=== PATIENT | female | born 1995 | race Caucasian/White ===

== ENCOUNTER 2018-09-17 12:40 | Emergency (ER) | payer MEDICAID ==
[~2018-09-17] VITALS: Ht 162.6 cm; Wt 104.3 kg
[~2018-09-17 12:40] MED LIST: AC500T; AMOX500C2 PO; BIRTH CONTORL PO; BIRTH CONTROL PILL; CEPH-507 PO; CLIN300C3 PO; FLT05NA16 NSEACH; ONDA8TAB2 PO; SULF-222 PO; TRAM-21 PO; TRAM50TA2 PO
[2018-09-17 12:54] VITALS: BP 130/82
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
== END 2018-09-17 14:30 | disposition left against medical advice (07) ==
LOC: EDUNIT# 12:40 → ER 12:42
DX: R51 Headache (principal); J45.909 Unspecified asthma, uncomplicated; Z90.89 Acquired absence of other organs; Y04.8XXA Assault by other bodily force, initial encounter
CPT/HCPCS: 70450; 84703; 99282

== ENCOUNTER 2018-10-27 17:08 | Emergency (ER) | payer MEDICAID | END 2018-10-27 17:32 | disposition home or self-care (01) | LOC: ER 17:08 ==

== ENCOUNTER 2018-12-01 10:31 | Emergency (ER) | payer MEDICAID ==
[~2018-12-01] VITALS: Ht 162.5 cm; Wt 104.5 kg
[~2018-12-01 10:31] MED LIST changes: +CYCL10TA9; +DICL75TA2; +NITR100C10
--- NOTE | 2018-12-01 10:51 | ED Upper Extremity ---
General Chief Complaint: Upper Extremity Stated Complaint: L HAND PAIN Nursing Triage Note: Pt c/o L wrist pain. Pt reports falling on the concrete last night. Nursing Sepsis Screen: No Definite Risk Source: patient Exam Limitations: no limitations History of Present Illness Date Seen by Provider: Dec 01, 2018 Time Seen by Provider: 10:49 Initial Comments To ER with pain at the base of her left thumb and left wrist after falling on concrete last night Onset: yesterday Severity: moderate Pain/Injury Location: left wrist, left thumb Method of Injury: unknown Modifying Factors: Improves With Movement Allergies and Home Medications Allergies Coded Allergies: No Known Allergies (Unverified Allergy, Mild, 08/27/08) No Known Drug Allergies (Unverified Allergy, Mild, 07/05/08) Home Medications Amoxicillin 500 Mg Capsule, 500 MG PO TID Prescribed by: MICHELLE LÓPEZ on 10/27/18 1725 Cephalexin 500 Mg Capsule, 500 MG PO QID Prescribed by: LEON KENT on 04/16/15 0150 Patient Home Medication List Home Medication List Reviewed: Yes Review of Systems Constitutional: see HPI EENTM: see HPI Respiratory: no symptoms reported Cardiovascular: no symptoms reported Gastrointestinal: see HPI Genitourinary: no symptoms reported Musculoskeletal: see HPI Skin: no symptoms reported Psychiatric/Neurological: No Symptoms Reported Past Umeneqs-Atpkug-Fzngyw Hx Patient Social History Alcohol Use: Occasionally Uses Recreational Drug Use: No 2nd Hand Smoke Exposure: No Recent Foreign Travel: No Contact w/Someone Who Travel: No Recent Infectious Disease Expo: No Physical Abuse: No Sexual Abuse: No Immunizations Up To Date Tetanus Booster (TDap): Unknown PED Vaccines UTD: Yes Seasonal Allergies Seasonal Allergies: No Past Medical History Surgeries: Yes Adenoidectomy, Tonsillectomy Respiratory: No Asthma Cardiac: No Neurological: No Reproductive Disorders: No Gastrointestinal: No Musculoskeletal: No Endocrine: No Cancer: No Psychosocial: Yes Depression Integumentary: No Blood Disorders: No Family Medical History No Pertinent Family Hx Physical Exam Vital Signs Capillary Refill : Less Than 3 Seconds Height, Weight, BMI Height: 5'4.00" Weight: 230lbs. oz. 104.942924dg; 39.00 BMI Method:Stated General Appearance: WD/WN, no apparent distress HEENT: PERRL/EOMI, normal ENT inspection Respiratory: no respiratory distress, no accessory muscle use Shoulder: normal inspection, non-tender Elbow/Forearm: normal inspection, non-tender Wrist: Yes normal inspection, Yes non-tender Hand: Left, limited ROM, soft tissue tenderness Neurologic/Psychiatric: alert, normal mood/affect, oriented x 3 Skin: normal color, warm/dry Progress/Results/Core Measures Results/Orders My Orders Orders - MICHELLE LÓPEZ APRN Wrist, Left, 3 Views Or More (12/01/18 10:48) Blood Pressure Mean: 87 Departure Impression Primary Impression: Thumb sprain Qualified Codes: S63.602A - Unspecified sprain of left thumb, initial encounter Disposition: HOME, SELF-CARE Condition: Stable Departure-Patient Inst. Decision time for Depature: 10:50 Referrals: [facility] (PCP/Family) Primary Care Physician Patient Instructions: Sprained Thumb Add. Discharge Instructions: Splint as needed really didn't splint can be removed when you feel better 2. Tylenol and Motrin for pain All discharge instructions reviewed with patient and/or family. Voiced understanding. MICHELLE LÓPEZ APRN Dec 01, 2018 10:51
--- NOTE | 2018-12-01 11:09 | Diagnostic Imaging Report ---
INDICATION: Wrist pain after fall. 3 views were obtained. FINDINGS: The alignment is normal. There is no fracture or dislocation. Soft tissues are unremarkable. IMPRESSION: No focal abnormality in the left wrist. Dictated by: Dictated on workstation # [id number]
[2018-12-01 11:14] VITALS: BP 112/74
== END 2018-12-01 11:10 | disposition home or self-care (01) ==
LOC: EDUNIT# 10:31 → ER 10:32
DX: S63.602A Unspecified sprain of left thumb, initial encounter (principal); J45.909 Unspecified asthma, uncomplicated; F32.9 Major depressive disorder, single episode, unspecified; Z90.89 Acquired absence of other organs; W19.XXXA Unspecified fall, initial encounter
CPT/HCPCS: 73110

== ENCOUNTER 2019-03-25 13:12 | Emergency (ER) | payer MEDICAID ==
[~2019-03-25] VITALS: Ht 162 cm; Wt 101.0 kg
[2019-03-25] MEDS ORDERED: NS IV 1000 ML 1,000 ML IV SCH (14:30)
[2019-03-25 14:32] LABS: BASOPHILS % (AUTO) 0 % (0-10); EOSINOPHILS # (AUTO) 0.1 10^3/uL (0.0-0.3); EOSINOPHILS % (AUTO) 1 % (0-10); HEMATOCRIT 42 % (35-52); HEMOGLOBIN 13.7 G/DL (11.5-16.0); LYMPHOCYTES # (AUTO) 3.6 X 10^3 (1.0-4.0); LYMPHOCYTES % (AUTO) 32 % (12-44); MEAN CORPUSCULAR HEMOGLOBIN 27 PG (25-34); MEAN CORPUSCULAR HGB CONC 33 G/DL (32-36); MEAN CORPUSCULAR VOLUME 82 FL (80-99); MEAN PLATELET VOLUME 11.1 FL (7.4-10.4); MONOCYTES # (AUTO) 0.6 X 10^3 (0.0-1.0); MONOCYTES % (AUTO) 5 % (0-12); NEUTROPHILS % (AUTO) 61 % (42-75); PLATELET COUNT 324 10^3/uL (130-400); RED CELL DISTRIBUTION WIDTH 14.5 % (10.0-14.5); WHITE BLOOD COUNT 11.4 10^3/uL (4.3-11.0)
[2019-03-25 14:44] LABS: BILIRUBIN,URINE NEGATIVE (NEGATIVE); CLARITY,URINE CLEAR; COLOR,URINE YELLOW; GLUCOSE, URINE (UA) NEGATIVE (NEGATIVE); KETONES,URINE NEGATIVE (NEGATIVE); LEUKOCYTE ESTERASE ,URINE 1+ (NEGATIVE); NITRITE,URINE NEGATIVE (NEGATIVE); PROTEIN,URINE NEGATIVE (NEGATIVE)
[2019-03-25 14:49] LABS: ALANINE AMINOTRANSFERASE 18 U/L (0-55); ALBUMIN 4.6 GM/DL (3.2-4.5); ALKALINE PHOSPHATASE 74 U/L (40-136); BILIRUBIN,TOTAL 0.3 MG/DL (0.1-1.0); BUN/CREATININE RATIO 14; CALCIUM 9.9 MG/DL (8.5-10.1); CARBON DIOXIDE 23 MMOL/L (21-32); CHLORIDE 109 MMOL/L (98-107); CREATININE SERUM 0.87 MG/DL (0.60-1.30); GFR ESTIMATED > 60; GLUCOSE 87 MG/DL (70-105); POTASSIUM 4.1 MMOL/L (3.6-5.0); SODIUM 141 MMOL/L (135-145); TOTAL PROTEIN 8.2 GM/DL (6.4-8.2)
[2019-03-25 14:52] LABS: BACTERIA,URINE TRACE /HPF; SQUAMOUS EPITHELIAL CELL,UR RARE /HPF
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
[2019-03-25 15:45] VITALS: BP 100/60
== END 2019-03-25 15:45 | disposition home or self-care (01) ==
LOC: EDUNIT# 13:12 → ER 13:13
DX: R55 Syncope and collapse (principal); J45.909 Unspecified asthma, uncomplicated; F32.9 Major depressive disorder, single episode, unspecified; Z87.891 Personal history of nicotine dependence; Z90.89 Acquired absence of other organs
CPT/HCPCS: 36415; 80053; 81000; 84443; 84703; 85025; 87088; 93005

== ENCOUNTER 2020-01-02 10:11 | Emergency (ER) | payer MEDICAID ==
[~2020-01-02] VITALS: Ht 162 cm; Wt 90.0 kg
[2020-01-02 10:20] VITALS: BP 121/85
--- NOTE | 2020-01-02 10:44 | ED Back Pain ---
General Chief Complaint: Back Problems Stated Complaint: LEG AND BACK PAIN Nursing Triage Note: AMBULATED TO ROOM 06 WITHOUT DIFFICULTY. COMPLAINS OF BILAT LEG AND BACK PAIN THAT CAUSED HER NOT TO BE ABLE TO GET OUT OF BED THIS AM. HAS NOT TAKEN ANY MEDICATION TODAY ET STATES "NOTHING HELPS". THIS PAIN HAS BEEN ONGOING SINCE THE OF HER CHILD IN 2016. Nursing Sepsis Screen: No Definite Risk History of Present Illness Date Seen by Provider: Jan 02, 2020 Time Seen by Provider: 10:38 Initial Comments Patient is a 24-year-old female who presents to the emergency room today with a chief complaint of low back pain and pain in her legs. Patient states that she has had back pain "all my life". Patient states over the last several days she has had increased pain that is radiating into her thighs. She points to the proximal outer portion of her bilateral thighs. She states the pain on the right radiates to the knee but not below it. Patient denies any incontinence issues. She denies any numbness to her groin. Patient states that she has tried Aleve without any relief of symptoms. Patient states she has seen her primary care doctor about this problem and had x-rays done a few days ago. Patient states that moving around makes her pain worse especially when she is standing up. Patient denies any problems with dysuria, urgency or frequency. No abnormal vaginal discharge. All other review of systems reviewed and negative except as stated above. Location: Lumbar Spine Timing/Duration: 2-3 Days Severity: Moderate Pain/Injury Location: Back Radiation: Upper Legs Allergies and Home Medications Allergies Coded Allergies: NKANo Known Allergies (Unverified Allergy, Mild, 08/27/08) No Known Drug Allergies (Unverified , 07/05/08) Home Medications Methylprednisolone 4 Mg Tablet, 4 MG PO UD FOLLOW DOSE PACK INSTRUCTIONS Prescribed by: THERESA JIM on 01/02/20 1055 Patient Home Medication List Home Medication List Reviewed: Yes Review of Systems Constitutional: no symptoms reported EENTM: no symptoms reported Respiratory: no symptoms reported Cardiovascular: no symptoms reported Gastrointestinal: no symptoms reported Genitourinary: no symptoms reported : No Control/STD Prophylaxis: Other (norplant) Musculoskeletal: back pain; No other Skin: no symptoms reported Psychiatric/Neurological: Denies Numbness, Denies Paresthesia, Denies Weakness Past Rpximdy-Svgtec-Jntosn Hx Patient Social History Alcohol Use: Denies Use Recreational Drug Use: No Smoking Status: Never a Smoker Type Used: Cigarettes Former Smoker, Quit: Feb 04, 2016 2nd Hand Smoke Exposure: No Recent Foreign Travel: No Contact w/Someone Who Travel: No Recent Infectious Disease Expo: No Immunizations Up To Date Tetanus Booster (TDap): Unknown PED Vaccines UTD: Yes Seasonal Allergies Seasonal Allergies: No Past Medical History Surgeries: Yes Adenoidectomy, Tonsillectomy Respiratory: No Asthma Cardiac: No Neurological: No Reproductive Disorders: No Genitourinary: No Gastrointestinal: No Musculoskeletal: No Endocrine: No HEENT: No Cancer: No Psychosocial: Yes Depression Integumentary: No Blood Disorders: No Family Medical History No Pertinent Family Hx Physical Exam Vital Signs Vital Signs - First Documented 01/02/20 10:20 Temp 36.4 Pulse 89 Resp 16 B/P (MAP) 121/85 (97) Pulse Ox 97 O2 Delivery Room Air Capillary Refill : Less Than 3 Seconds Height, Weight, BMI Height: 5'4.00" Weight: 230lbs. oz. 104.199105hz; 34.00 BMI Method:Stated General Appearance: No Apparent Distress, WD/WN HEENT: PERRL/EOMI Neck: Normal Inspection, Non Tender Cardiovascular: Regular Rate, Rhythm Respiratory: Lungs Clear, Normal Breath Sounds, No Accessory Muscle Use, No Respiratory Distress Gastrointestinal: Non Tender, Soft Back: Normal Inspection, Vertebral Tenderness (Lumbar spine, L4/L5), Other (Negative straight leg raise bilaterally, 2+ patellar reflexes bilaterally, 1+ ankle jerks bilaterally. No distal paresthesias) Neurologic/Psychiatric: Alert, Oriented x3, No Motor/Sensory Deficits, Normal Mood/Affect, therapist's assistant II-XII Norm as Tested Skin: Normal Color, Warm/Dry Progress/Results/Core Measures Results/Orders My Orders Orders - THERESA JIM MD Ketorolac Injection (Toradol Injection) (01/02/20 10:45) Orphenadrine Inj (Ed Only) (Norflex Inje (01/02/20 10:45) Vital Signs/I&O 01/02/20 10:20 Temp 36.4 Pulse 89 Resp 16 B/P (MAP) 121/85 (97) Pulse Ox 97 O2 Delivery Room Air Blood Pressure Mean: 97 Progress Progress Note : Time: 10:50 Progress Note 24-year-old female presents to the emergency department today with a chief complaint of back pain with bilateral leg pain. Patient on exam is neurologically intact. She has no saddle anesthesia, loss of reflexes, incontinence. She does have radiation of her discomfort into her bilateral thighs. She is treated in the emergency department with 30 mg of IM Toradol and 60 mg of IM Norflex. Patient is under the care of her primary care doctor at [facility]. Patient will be started on a Medrol dose pack. She does have follow-up arranged with her primary care doctor. She is given good return precautions. She is agreeable with the plan of care all questions are sought and answered and she is stable for discharge. Departure Impression Primary Impression: Back pain with radiculopathy Disposition: HOME, SELF-CARE Condition: Stable Departure-Patient Inst. Decision time for Depature: 10:51 Referrals: [facility] (PCP/Family) Primary Care Physician Patient Instructions: Low Back Pain (DC) Add. Discharge Instructions: You can try [id number] heating pads for your discomfort. I have written you a prescription for steroids. Take these as directed. I have sent your prescription to the [facility] pharmacy. Please follow-up with your primary care doctor. Return to the emergency department for any worsening pain especially if you have loss of bowel or bladder control, numbness or weakness in your legs, numbness in your groin or any other emergent concerning symptoms. All discharge instructions reviewed with patient and/or family. Voiced understanding. Scripts Methylprednisolone (Methylprednisolone Dose Pack) 4 Mg Tablet 4 MG PO UD for Back Pain for 6 Days, #21 TAB FOLLOW DOSE PACK INSTRUCTIONS Prov: THERESA JIM MD 01/02/20 THERESA JIM MD Jan 02, 2020 10:44
[2020-01-02] MEDS ORDERED: KETOROLAC 60 MG/2 ML VIAL IM ONE (10:45)
[2020-01-02] MEDS ORDERED: ORPHENADRINE 60 MG/2 ML (NORFLEX) AMP (ED ONLY) IM ONE (10:45)
[2020-01-02] MEDS ORDERED: METH4TAB11 PO (10:55)
== END 2020-01-02 11:10 | disposition home or self-care (01) ==
LOC: EDUNIT# 10:11 → ER 10:13
DX: M54.16 Radiculopathy, lumbar region (principal); J45.909 Unspecified asthma, uncomplicated; Z87.891 Personal history of nicotine dependence; Z79.52 Long term (current) use of systemic steroids
CPT/HCPCS: 99284

== ENCOUNTER 2020-07-07 15:52 | Emergency (ER) | payer MEDICAID ==
[~2020-07-07] VITALS: Ht 164.6 cm; Wt 90.7 kg
[~2020-07-07 15:52] MED LIST changes: +METH4TAB11 PO
[2020-07-07 16:02] VITALS: BP 99/66
[2020-07-07 16:20] LABS: BILIRUBIN,URINE NEGATIVE (NEGATIVE); CLARITY,URINE CLEAR; COLOR,URINE YELLOW; GLUCOSE, URINE (UA) NEGATIVE (NEGATIVE); KETONES,URINE NEGATIVE (NEGATIVE); LEUKOCYTE ESTERASE ,URINE TRACE (NEGATIVE); NITRITE,URINE NEGATIVE (NEGATIVE); PROTEIN,URINE NEGATIVE (NEGATIVE)
[2020-07-07 16:30] LABS: BACTERIA,URINE TRACE /HPF
[2020-07-07] MEDS ORDERED: NITR100C PO (16:51)
--- NOTE | 2020-07-07 16:52 | ED GU-Female ---
General Chief Complaint: - Urinary Stated Complaint: URINATING BLOOD/SMELLS Nursing Triage Note: pt ambulatory to triage complaining of foul smelling urine onset 0900 yesterday morning. pt noticed blood on tissue shortly after. pt noticed more blood on tissue when wiping today. pt stated she hasn't had a period since 2019 when she was placed on control. denies pain Nursing Sepsis Screen: No Definite Risk History of Present Illness Date Seen by Provider: July 07, 2020 Time Seen by Provider: 16:00 Initial Comments 25-year-old female presents for dysuria. She reports no recent history of UTIs. She did notice some hematuria today as it progressed. She is denying back or abdominal pain. She has not taken any vyuw-abq-wmotdsw medicines. Timing/Duration: this morning Severity/Quality: mild Activities at Onset: none Associated Symptoms: No abdominal pain; urinary frequency Allergies and Home Medications Allergies Coded Allergies: NKANo Known Allergies (Unverified Allergy, Mild, 08/27/08) No Known Drug Allergies (Unverified , 07/05/08) Home Medications Methylprednisolone 4 Mg Tablet, 4 MG PO UD FOLLOW DOSE PACK INSTRUCTIONS Prescribed by: THERESA JIM on 01/02/20 1055 Nitrofurantoin Macrocrystal 100 Mg Capsule, 100 MG PO BID Prescribed by: CRICKET DEMARCO on 07/07/20 1651 Patient Home Medication List Home Medication List Reviewed: Yes Review of Systems Review of Systems Constitutional: no symptoms reported, see HPI Genitourinary: see HPI, dysuria, frequency, hematuria, other (Foul-smelling urine) All Other Systemes Reviewed Negative Unless Noted: Yes Past Pknylju-Sngbph-Boembt Hx Past Med/Social Hx: Reviewed Nursing Past Med/Soc Hx Patient Social History Alcohol Use: Denies Use Smoking Status: Never a Smoker Type Used: Cigarettes Former Smoker, Quit: Feb 04, 2016 2nd Hand Smoke Exposure: No Recent Infectious Disease Expo: No Immunizations Up To Date Tetanus Booster (TDap): Unknown PED Vaccines UTD: Yes Seasonal Allergies Seasonal Allergies: No Past Medical History Surgeries: Yes Adenoidectomy, Tonsillectomy Respiratory: No Asthma Cardiac: No Neurological: No Reproductive Disorders: No Genitourinary: No Gastrointestinal: No Musculoskeletal: No Endocrine: No HEENT: No Cancer: No Psychosocial: Yes Depression Integumentary: No Blood Disorders: No Family Medical History No Pertinent Family Hx Physical Exam Vital Signs Vital Signs - First Documented 07/07/20 15:54 Temp 36.5 Pulse 90 Resp 18 B/P (MAP) 99/66 (77) Pulse Ox 20 Capillary Refill : Less Than 3 Seconds Height, Weight, BMI Height: 5'4.00" Weight: 230lbs. oz. 104.234111wn; 34.00 BMI Method:Stated General Appearance: WD/WN, no apparent distress Cardiovascular: normal peripheral pulses, regular rate, rhythm Respiratory: chest non-tender, lungs clear, normal breath sounds Gastrointestinal: normal bowel sounds, non tender, soft Back: normal inspection, no CVA tenderness Neurologic/Psychiatric: no motor/sensory deficits, alert, normal mood/affect, oriented x 3 Skin: normal color, warm/dry Progress/Results/Core Measures Suspected Sepsis Recent Fever Within 48 Hours: No Infection Criteria Present: None New/Unexplained Altered Menta: No Sepsis Screen: No Definite Risk SIRS Temperature: Pulse: 90 Respiratory Rate: 20 Blood Pressure 99 /66 Mean: 77 Results/Orders Lab Results Laboratory Tests Test 07/07/20 16:14 Range/Units Urine Color YELLOW Urine Clarity CLEAR Urine pH 6.0 5-9 Urine Specific [place] 1.025 H 1.016-1.022 Urine Protein NEGATIVE NEGATIVE Urine Glucose (UA) NEGATIVE NEGATIVE Urine Ketones NEGATIVE NEGATIVE Urine Nitrite NEGATIVE NEGATIVE Urine Bilirubin NEGATIVE NEGATIVE Urine Urobilinogen 1.0 < = 1.0 MG/DL Urine Leukocyte Esterase TRACE H NEGATIVE Urine RBC (Auto) 3+ H NEGATIVE Urine RBC 10-25 H /HPF Urine WBC 10-25 H /HPF Urine Squamous Epithelial Cells NONE /HPF Urine Renal Epithelial Cells NONE /HPF Urine Crystals NONE /LPF Urine Bacteria TRACE /HPF Urine Casts NONE /LPF Urine Mucus SMALL H /LPF Urine Culture Indicated YES My Orders Orders - CRICKET DEMARCO Ua Culture If Indicated (07/07/20 15:55) Urine Bedside (07/07/20 15:55) Urine Culture (07/07/20 16:14) Vital Signs/I&O 07/07/20 07/07/20 15:54 16:02 Temp 36.5 36.5 Pulse 90 90 Resp 18 20 B/P (MAP) 99/66 (77) Pulse Ox 20 98 Capillary Refill : Less Than 3 Seconds Blood Pressure Mean: 77 Departure Impression Primary Impression: Urinary tract infection Qualified Codes: N30.01 - Acute cystitis with hematuria Disposition: HOME, SELF-CARE Condition: Improved Departure-Patient Inst. Decision time for Depature: 16:50 Referrals: [facility] (PCP/Family) Primary Care Physician Patient Instructions: Urinary Tract Infection, Adult (DC) Add. Discharge Instructions: Take antibiotics as prescribed. Alternate between Tylenol 650 mg ibuprofen 600 mg every 4 hours for pain. Increase water intake, 16 ounces every 2 hours while awake. Drink 1 cup of cranberry juice daily. Follow-up with your primary care provider in 2 to 3 days if symptoms are not improving or worsen. Return to the emergency department for new, urgent healthcare needs. All discharge instructions reviewed with patient and/or family. Voiced understanding. Scripts Nitrofurantoin Macrocrystal (Nitrofurantoin) 100 Mg Capsule 100 MG PO BID, #14 CAP 0 Refills Prov: CRICKET DEMARCO 07/07/20 CRICKET DEMARCO July 07, 2020 16:52
== END 2020-07-07 17:03 | disposition home or self-care (01) ==
LOC: EDUNIT# 15:52 → ER 15:54
DX: N39.0 Urinary tract infection, site not specified (principal); J45.909 Unspecified asthma, uncomplicated; Z87.891 Personal history of nicotine dependence; Z79.52 Long term (current) use of systemic steroids
CPT/HCPCS: 81000; 84703; 87088; 99282

== ENCOUNTER 2020-09-17 20:10 | Emergency (ER) | payer MEDICAID ==
[~2020-09-17] VITALS: Ht 162.5 cm; Wt 99.8 kg
[~2020-09-17 20:10] MED LIST changes: +NITR100C PO
[2020-09-17 20:58] VITALS: BP 115/87
--- NOTE | 2020-09-17 21:02 | ED Integumentary General ---
General Stated Complaint: STUNG BY BEE Source: patient Exam Limitations: no limitations History of Present Illness Date Seen by Provider: Sep 17, 2020 Time Seen by Provider: 20:59 Initial Comments To ER with reports that she was stung on the right second toe by a bee. She got the stinger out but believes some of it may still be within her toe because it i s throbbing. Timing/Duration: just prior to arrival Severity: moderate Location: none Possible Cause: insect sting Associated Symptoms: denies symptoms Allergies and Home Medications Allergies Coded Allergies: NKANo Known Allergies (Unverified Allergy, Mild, 08/27/08) No Known Drug Allergies (Unverified , 07/05/08) Home Medications Methylprednisolone 4 Mg Tablet, 4 MG PO UD FOLLOW DOSE PACK INSTRUCTIONS Prescribed by: THERESA JIM on 01/02/20 1055 Nitrofurantoin Macrocrystal 100 Mg Capsule, 100 MG PO BID Prescribed by: CRICKET DEMARCO on 07/07/20 1651 Patient Home Medication List Home Medication List Reviewed: Yes Review of Systems Review of Systems Constitutional: see HPI EENTM: see HPI Respiratory: no symptoms reported Cardiovascular: no symptoms reported Genitourinary: no symptoms reported Musculoskeletal: no symptoms reported Skin: no symptoms reported Psychiatric/Neurological: No Symptoms Reported Past Dtphsho-Lozmsq-Fgkspv Hx Immunizations Up To Date Tetanus Booster (TDap): Unknown PED Vaccines UTD: Yes Seasonal Allergies Seasonal Allergies: No Past Medical History Surgeries: Yes Adenoidectomy, Tonsillectomy Respiratory: No Asthma Cardiac: No Neurological: No Reproductive Disorders: No Genitourinary: No Gastrointestinal: No Musculoskeletal: No Endocrine: No HEENT: No Cancer: No Psychosocial: Yes Depression Integumentary: No Blood Disorders: No Family Medical History No Pertinent Family Hx Physical Exam Vital Signs Capillary Refill : General Appearance: WD/WN, no apparent distress HEENT: PERRL/EOMI, normal ENT inspection Neck: non-tender, full range of motion Respiratory: no respiratory distress, no accessory muscle use Gastrointestinal: normal bowel sounds, non tender Neurologic/Psychiatric: alert, normal mood/affect, oriented x 3 Skin: normal color, warm/dry Skin Problem Location: lower extremities (Left second toe has a bit of erythema but no visible foreign body or stinger remains.) Departure Impression Primary Impression: Bee sting Disposition: HOME, SELF-CARE Condition: Stable Departure-Patient Inst. Decision time for Depature: 21:01 Referrals: [facility] (PCP/Family) Primary Care Physician Patient Instructions: Insect Bites and Stings (DC) MICHELLE LÓPEZ APRN Sep 17, 2020 21:02
== END 2020-09-17 21:05 | disposition home or self-care (01) ==
LOC: EDUNIT# 20:10 → ER 20:12
DX: T63.441A Toxic effect of venom of bees, accidental (unintentional), initial encounter (principal)
CPT/HCPCS: 99283

== ENCOUNTER 2021-04-18 13:05 | Emergency (ER) | payer MEDICAID ==
[~2021-04-18] VITALS: Ht 165 cm; Wt 100.0 kg
[~2021-04-18 13:05] MED LIST changes: +CYCL10TA25; -CYCL10TA9
--- NOTE | 2021-04-18 13:24 | ED Lower Extremity ---
General Stated Complaint: RIGHT KNEE POPPED, LEFT FOOT HURTS History of Present Illness Date Seen by Provider: Apr 18, 2021 Time Seen by Provider: 13:05 Initial Comments 25-year-old female presents for right knee and ankle pain. She reports yesterday she was ambulating when her right knee popped causing her pain and to fall. Today she was going down stairs when her right ankle and foot became weak causing her to fall and twist her right ankle. She has not taken any medicine for swelling or pain and has not iced it prior to arrival. She denies previous history of problems to her right knee or ankle/foot. She is able to ambulate on her right lower extremity with an antalgic gait putting the majority of the weight on ball of foot. Onset: just prior to arrival, yesterday Pain/Injury Location: right knee, right ankle Method of Injury: fell Modifying Factors: Improves With Rest (CRICKET DEMARCO) Allergies and Home Medications Allergies Coded Allergies: NKANo Known Allergies (Unverified Allergy, Mild, 08/27/08) No Known Drug Allergies (Unverified , 07/05/08) Patient Home Medication List Home Medication List Reviewed: Yes (CRICKET DEMARCO) Methylprednisolone (Methylprednisolone Dose Pack) 4 Mg Tablet, 4 MG PO UD Prescribed by: THERESA JIM on 01/02/20 1055 Nitrofurantoin Macrocrystal (Nitrofurantoin) 100 Mg Capsule, 100 MG PO BID Prescribed by: CRICKET DEMARCO on 07/07/20 1651 Review of Systems Constitutional: no symptoms reported, see HPI Musculoskeletal: see HPI, joint pain (right knee/ankle), joint swelling (CRICKET DEMARCO) All Other Systems Reviewed Negative Unless Noted: Yes (CRICKET DEMARCO) Past Cdpvhmx-Jfeesj-Eptgwt Hx Immunizations Up To Date Tetanus Booster (TDap): Unknown PED Vaccines UTD: Yes (CRICKET DEMARCO) Seasonal Allergies Seasonal Allergies: No (CRICKET DEMARCO) Past Medical History Surgeries: Yes Adenoidectomy, Tonsillectomy Respiratory: No Asthma Cardiac: No Neurological: No Reproductive Disorders: No Genitourinary: No Gastrointestinal: No Musculoskeletal: No Endocrine: No HEENT: No Cancer: No Psychosocial: Yes Depression Integumentary: No Blood Disorders: No (CRICKET DEMARCO) Family Medical History Reviewed Nursing Family Hx (CRICKET DEMARCO) No Pertinent Family Hx (CRICKET DEMARCOP) Physical Exam Vital Signs Vital Signs - First Documented 04/18/21 13:20 Temp 35.8 Pulse 82 Resp 18 B/P (MAP) 126/79 (95) Pulse Ox 95 (LEON BACA MD) Vital Signs Capillary Refill : (CRICKET DEMARCO) Height, Weight, BMI Height: 5'4.00" Weight: 230lbs. oz. 104.596527mu; 37.00 BMI Method:Stated General Appearance: WD/WN, no apparent distress Cardiovascular: normal peripheral pulses, regular rate, rhythm Respiratory: chest non-tender, lungs clear, normal breath sounds Knees: right knee normal range of motion, right knee joint effusion (small), right knee soft tissue tenderness Ankles: right ankle normal range of motion, right ankle bone tenderness, right ankle pain, right ankle soft tissue tenderness, right ankle swelling (mild) Feet: right foot non-tender, right foot normal inspection, right foot normal range of motion, right foot no evidence of injury Neurologic/Tendon: normal sensation, normal motor functions, normal tendon functions Neurologic/Psychiatric: no motor/sensory deficits, alert, normal mood/affect, oriented x 3 Skin: normal color, warm/dry (CRICKET DEMARCO) Progress/Results/Core Measures Results/Orders Vital Signs/I&O 04/18/21 04/18/21 13:20 15:00 Temp 35.8 35.8 Pulse 82 82 Resp 18 18 B/P (MAP) 126/79 (95) 126/79 Pulse Ox 95 95 (LEON BACA MD) Progress Progress Note : Time: 13:05 Progress Note Patient seen and evaluated, will obtain x-rays of the knee and ankle. She reports no regular menstrual cycle after having implanted contraception. Denies need for pain medicine at this time. 1400 no fractures, dislocation or acute findings on x-ray. Discharge instructions and return precautions reviewed. Kishore wrap to ankle and knee. (DAVCRICKET MOON) Diagnostic Imaging Diagonstic Imaging: Xray Plain Films/CT/US/NM/MRI: knee Comments NAME: MCKENNA GILLESPIE MED REC#: [id number] PT STATUS: REG ER : 1995 PHYSICIAN: CRICKET DEMARCO ADMIT DATE: 04/18/21/ER Draft Date of Exam:04/18/21 KNEE, RIGHT, 3 VIEWS INDICATION: Knee pain COMPARISON: None available. TECHNIQUE: 3 radiographs of the right knee dated 04/18/2021. FINDINGS: No acute fracture or dislocation. No destructive osseous process. Joint spaces are well-maintained. No significant osteophytosis. No knee joint effusion. No suspicious radiopaque foreign body. IMPRESSION: No acute osseous abnormality. Dictated on workstation # [id number] Dict: 04/18/21 1349 Trans: 04/18/21 1354 [facility] [id number] Interpreted by: MICHAEL LANGE MD Electronically signed by: Reviewed: Reviewed by Me Diagonstic Imaging: Xray Plain Films/CT/US/NM/MRI: ankle Comments [place], [place] NAME: MCKENNA GILLESPIE Kenn [place] [facility] REC#: [id number] PT STATUS: REG ER : 1995 PHYSICIAN: CRICKET DEMARCO ADMIT DATE: 04/18/21/ER Draft Date of Exam:04/18/21 FOOT, RIGHT, 3 VIEW INDICATION: Foot pain COMPARISON: None available TECHNIQUE: 3 radiographs of the right foot dated 04/18/2021. FINDINGS: No acute fracture or dislocation. No destructive osseous process. Accessory ossicles are noted involving the hindfoot both medially and laterally. The Lisfranc joint is well-aligned. No suspicious radiopaque foreign body. IMPRESSION: No acute osseous abnormality. Dictated on workstation # [id number] Dict: 04/18/21 1422 Trans: 04/18/21 1444 [facility] [id number] Interpreted by: MICHAEL LANGE MD Electronically signed by: Reviewed: Reviewed by Me (CRICKET DEMARCO) Departure Impression Primary Impression: Right ankle pain Qualified Codes: M25.571 - Pain in right ankle and joints of right foot Additional Impression: Right knee pain Qualified Codes: M25.561 - Pain in right knee Disposition: 01 HOME, SELF-CARE Condition: Improved Departure-Patient Inst. Decision time for Depature: 14:00 (CRICKET DEMARCO) Referrals: [facility] (PCP/Family) Primary Care Physician Patient Instructions: Knee Sprain (DC), Ankle Sprain (DC) Add. Discharge Instructions: Ice to right knee and right ankle for 20 minutes every 2 hours while awake. Alternate between Tylenol 650 mg ibuprofen 600 mg every 4 hours for pain and sw elling. Activity as tolerated on the right lower extremity. Follow-up with your primary care provider if symptoms are not improving or worsen and they can refer to you to orthopedics. Return to the emergency department for new, urgent healthcare needs. ATTENDING PHYSICIAN NOTE: I was physically present as attending physician in the emergency department during the care of this patient, but I was not directly involved in the decision making or delivery of care for this patient. (LEON BACA MD) CRICKET DEMARCO Apr 18, 2021 13:24 LEON BACA MD Apr 18, 2021 19:34
--- NOTE | 2021-04-18 13:56 | Diagnostic Imaging Report ---
INDICATION: Knee pain COMPARISON: None available. TECHNIQUE: 3 radiographs of the right knee dated 04/18/2021. FINDINGS: No acute fracture or dislocation. No destructive osseous process. Joint spaces are well-maintained. No significant osteophytosis. No knee joint effusion. No suspicious radiopaque foreign body. IMPRESSION: No acute osseous abnormality. Dictated by: Dictated on workstation # [id number]
--- NOTE | 2021-04-18 14:44 | Diagnostic Imaging Report ---
INDICATION: Foot pain COMPARISON: None available TECHNIQUE: 3 radiographs of the right foot dated 04/18/2021. FINDINGS: No acute fracture or dislocation. No destructive osseous process. Accessory ossicles are noted involving the hindfoot both medially and laterally. The Lisfranc joint is well-aligned. No suspicious radiopaque foreign body. IMPRESSION: No acute osseous abnormality. Dictated by: Dictated on workstation # [id number]
[2021-04-18 15:00] VITALS: BP 126/79
== END 2021-04-18 15:04 | disposition home or self-care (01) ==
LOC: EDUNIT# 13:05 → ER 13:08
DX: M25.571 Pain in right ankle and joints of right foot (principal); M25.561 Pain in right knee; J45.909 Unspecified asthma, uncomplicated
CPT/HCPCS: 73562; 73630; 84703; 99282

== ENCOUNTER 2021-04-23 13:45 | Emergency (ER) | payer MEDICAID ==
[~2021-04-23] VITALS: Ht 162.5 cm; Wt 108.8 kg
[2021-04-23 13:55] VITALS: BP 121/74
--- NOTE | 2021-04-23 13:57 | ED Lower Extremity ---
General Stated Complaint: R LEG PAIN SEEN ON Source: patient Exam Limitations: no limitations History of Present Illness Date Seen by Provider: Apr 23, 2021 Time Seen by Provider: 13:48 Initial Comments 25-year-old female with no significant past medical history coming in due to right knee pain. She slipped on urine from her dog about an hour ago and landed on her right knee on the wooden floor. Having pain around her patella. Has been able to walk since then but having significant constant throbbing pain in her knee. Worse with movement better with rest. She has not taken any medications. She is otherwise denying any other acute complaints Allergies and Home Medications Allergies Coded Allergies: NKANo Known Allergies (Unverified Allergy, Mild, 08/27/08) No Known Drug Allergies (Unverified , 07/05/08) Patient Home Medication List Home Medication List Reviewed: Yes Methylprednisolone (Methylprednisolone Dose Pack) 4 Mg Tablet, 4 MG PO UD Prescribed by: THERESA JIM on 01/02/20 1055 Nitrofurantoin Macrocrystal (Nitrofurantoin) 100 Mg Capsule, 100 MG PO BID Prescribed by: CRICKET DEMARCO on 07/07/20 1651 Review of Systems Constitutional: No chills EENTM: No blurred vision Respiratory: No cough Cardiovascular: No chest pain Gastrointestinal: No abdominal pain Genitourinary: no symptoms reported Musculoskeletal: joint pain Skin: no symptoms reported Psychiatric/Neurological: No Symptoms Reported All Other Systems Reviewed Negative Unless Noted: Yes Past Kplfqvn-Rwzbtx-Rdsduq Hx Patient Social History Substance use?: No Immunizations Up To Date Tetanus Booster (TDap): Unknown PED Vaccines UTD: Yes Seasonal Allergies Seasonal Allergies: No Past Medical History Surgeries: Yes Adenoidectomy, Tonsillectomy Respiratory: No Asthma Cardiac: No Neurological: No Reproductive Disorders: No Genitourinary: No Gastrointestinal: No Musculoskeletal: No Endocrine: No HEENT: No Cancer: No Psychosocial: Yes Depression Integumentary: No Blood Disorders: No Family Medical History No Pertinent Family Hx Physical Exam Vital Signs Vital Signs - First Documented 04/23/21 13:55 Temp 36.2 Pulse 90 Resp 20 B/P (MAP) 121/74 (90) Pulse Ox 96 Capillary Refill : Height, Weight, BMI Height: 5'4.00" Weight: 230lbs. oz. 104.799629kf; 36.00 BMI Method:Stated General Appearance: WD/WN, no apparent distress HEENT: PERRL/EOMI, normal ENT inspection, pharynx normal Neck: non-tender, full range of motion, supple, normal inspection Cardiovascular: regular rate, rhythm, no edema, no murmur Respiratory: chest non-tender, lungs clear, normal breath sounds, no respiratory distress, no accessory muscle use Gastrointestinal: normal bowel sounds, non tender, soft; No distended, No guarding Hips: bilateral hip non-tender, bilateral hip normal inspection, bilateral hip normal range of motion, bilateral hip no evidence of injury Legs: bilateral leg non-tender, bilateral leg normal inspection, bilateral leg normal range of motion, bilateral leg no evidence of injury Knees: left knee non-tender; bilateral knee normal inspection, bilateral knee normal range of motion, bilateral knee no evidence of injury; right knee soft tissue tenderness, right knee other (Tender along the patella with intact extensor mechanism) Ankles: bilateral ankle non-tender, bilateral ankle normal inspection, bilateral ankle normal range of motion, bilateral ankle no evidence of injury Feet: bilateral foot non-tender, bilateral foot normal inspection, bilateral foot normal range of motion, bilateral foot no evidence of injury Neurologic/Tendon: normal sensation, normal motor functions Neurologic/Psychiatric: no motor/sensory deficits, alert, normal mood/affect Skin: normal color, warm/dry Lymphatic: no adenopathy Progress/Results/Core Measures Results/Orders My Orders Orders - WOODROW GIANG MD Knee, Right, 3 Views (04/23/21 13:54) Ibuprofen Tablet (Motrin Tablet) (04/23/21 14:00) Medications Given in ED Current Medications Medications Dose Ordered Sig/Ade Route Start Time Stop Time Status Last Admin Dose Admin Ibuprofen 600 mg ONCE ONCE PO 04/23/21 14:00 04/23/21 14:01 DC 04/23/21 14:04 600 MG Vital Signs/I&O 04/23/21 13:55 Temp 36.2 Pulse 90 Resp 20 B/P (MAP) 121/74 (90) Pulse Ox 96 Progress Progress Note : Progress Note 25-year-old female with above history coming in after she slipped and landed on her right knee. ABCs were intact and vitals were stable on presentation. Physical exam with some tenderness mostly along her patella and the soft tissue around her knee. She has been ambulatory. Given ibuprofen for pain and x-ray of the right knee ordered. X-ray interpreted by me showing no fracture or dislocation. The knee was wrapped with an Kishore bandage and I recommend follow-up with orthopedics in the next week if she is not rapidly improving. She was then discharged home in stable condition with strict return precautions Departure Impression Primary Impression: Contusion of knee Qualified Codes: S80.01XA - Contusion of right knee, initial encounter Disposition: HOME, SELF-CARE Condition: Stable Departure-Patient Inst. Decision time for Depature: 14:31 Referrals: [facility] Primary Care Physician NANCY GIBSON MD Patient Instructions: Knee Sprain (DC) Add. Discharge Instructions: Fortunately you just bruised the bone in your knee and likely sprained one of the ligaments in it. If the swelling will not go down, or pain persist over the next week despite taking ibuprofen 600 mg every 6 hours and using ice, then I recommend following up with orthopedics here in town (Dr. Gibson's number in this paperwork to schedule an appointment). Work/School Note: Work Release Form Date Seen in the Emergency Department: Apr 23, 2021 Return to Work: Apr 24, 2021 Restrictions: No Restrictions WOODROW GIANG MD Apr 23, 2021 13:57
[2021-04-23] MEDS ORDERED: IBUPROFEN 600 MG (MOTRIN) TAB PO ONE (14:00)
--- NOTE | 2021-04-23 14:36 | Diagnostic Imaging Report ---
EXAMINATION: Right knee radiographs, 3 views. COMPARISON: April 18, 2021. HISTORY: 25-year-old female, right knee pain after a fall. FINDINGS: There is no identified acute fracture. The joint spaces are well preserved. There is no knee joint effusion. There is no identified radiopaque foreign body. IMPRESSION: Unremarkable radiographs of the right knee. Dictated by: Dictated on workstation # [id number]
== END 2021-04-23 14:42 | disposition home or self-care (01) ==
LOC: EDUNIT# 13:45 → ER 13:47
DX: S80.01XA Contusion of right knee, initial encounter (principal); J45.909 Unspecified asthma, uncomplicated; W01.0XXA Fall on same level from slipping, tripping and stumbling without subsequent striking against object, initial encounter
CPT/HCPCS: 73562